=== PATIENT | female | born 1975 | race American Indian/Alaskan Native ===

== ENCOUNTER 2018-05-12 15:25 | Emergency (ER) | payer MEDICAID | END 2018-05-12 15:26 | disposition left against medical advice (07) | LOC: ED 15:25 | DX: Z04.3 Encounter for examination and observation following other accident (principal); Z88.5 Allergy status to narcotic agent; Z88.8 Allergy status to other drugs, medicaments and biological substances; Z53.21 Procedure and treatment not carried out due to patient leaving prior to being seen by health care provider ==